=== PATIENT | female | born 1980 | race African-American/Black ===

== ENCOUNTER 2016-11-28 17:05 | Emergency (ER) | payer MEDICAID, OTHER ==
[~2016-11-28] VITALS: Ht 170.2 cm; Wt 161.0 kg
[~2016-11-28 17:05] MED LIST: IBUPROFEN600 MG ORAL; NKM; TRAMADOL HCL50 MG ORAL
[2016-11-28 17:35] VITALS: BP 160/95
[2016-11-28] MEDS ORDERED: Acetaminophen 500mg (ES) tab ORAL ONE (17:45)
--- NOTE | 2016-11-28 17:46 | Emergency Room Report ---
History of Present Illness General Chief Complaint: Pain Source: Patient Present Illness HPI 36-year-old female presents to emergency Department complaining of 10 out of 10 in severity left-sided low back pain that radiates down into the left posterior thigh calf and heel since yesterday. Patient states pain is exacerbated with certain movements specifically pending foreword. Patient denies history of recent fall or trauma. Patient states she has had 2 similar episodes in the past that weren't as painful and were relieved with hot pads. Patient states she has had no relief from her current symptoms patient denies nausea, vomiting , fevers, chills, , history of neoplastic disease or recent spinal procedures. Denies swelling of the leg, or recent travel. Denies numbness tingling or loss of sensation or gross motor movements of the extremities, incontinence of bowel or bladder. Denies CP, Palpitations, LOC, AMS, dizziness, Changes in Vision, Sensation, paresthesias, or a sudden severe headache. Allergies: Coded Allergies: NAPROXEN (Verified Allergy, Unknown, Rash, 11/19/15) Patient History Past Medical History: see triage record Past Surgical History: none Pertinent Family History: none Last Menstrual Period: 11/02/16 Now: No Immunizations: UTD Reviewed Nursing Documentation: PMH: Agreed, PSxH: Agreed Nursing Documentation-PMH Past Medical History: No History, Except For Hx Hypertension: Yes Hx Gastrointestinal Problems: No - C/S 3 times, gout Review of Systems All Other Systems: negative except mentioned in HPI Physical Exam Vital Signs Date Time Temp Pulse Resp B/P Pulse Ox O2 Delivery O2 Flow Rate FiO2 11/28/16 17:21 98.8 120 16 160/95 99 Room Air Sp02 EP Interpretation: reviewed, normal General Appearance: no apparent distress, alert, GCS 15, non-toxic, mild distress - Pt. cannot find a comfortable position, obese Head: normocephalic, atraumatic Eyes: bilateral eye PERRL, bilateral eye normal inspection ENT: hearing grossly normal, normal pharynx, no angioedema, normal voice Neck: full range of motion, supple/symm/no masses Respiratory: chest non-tender, lungs clear, normal breath sounds, speaking full sentences Cardiovascular #1: regular rate, rhythm, no edema Rectal: deferred Genitourinary: normal inspection, no CVA tenderness Musculoskeletal: back normal, gait/station normal, normal range of motion, non- tender, no calf tenderness, tender - palpation of the left paraspinal muscles exacerbates radiation down the left leg. no midline spinous process TTP, no erythema or evidence of obvious deformity or infection. Neurologic: alert, oriented x3, responsive, motor strength/tone normal, sensory intact, speech normal Psychiatric: judgement/insight normal, memory normal, mood/affect normal, no suicidal/homicidal ideation Skin: normal color, no rash, warm/dry, well hydrated Lymphatic: no adenopathy Medical Decision Making PA Attestation Dr. Max is my supervising Physician whom patient management has been discussed with. Diagnostic Impression: Primary Impression: Sciatica of left side ER Course Pt. presents to the ED c/o Left -sided low back pain that shoots down the leg x 2 day(s) Ddx considered but are not limited to Fracture, dislocation, contusion, epidural abscess, Sprain/Strain/Spasm Vital signs: are WNL, pt. is afebrile H&PE are most consistent with sciatica Pt. unable to tolerate straight leg raise. ORDERS: X-ray not required at this time, no spinous process tenderness ED INTERVENTIONS: -350mg Soma PO -Tylenol PO DISCHARGE: At this time pt. is stable for d/c to home. Will provide printed patient care instructions, and any necessary prescriptions. Care plan and follow up instructions have been discussed with the patient prior to discharge. Last Vital Signs Date Time Temp Pulse Resp B/P Pulse Ox O2 Delivery O2 Flow Rate FiO2 11/28/16 17:21 98.8 120 16 160/95 99 Room Air Disposition: HOME, SELF-CARE Condition: Stable Patient Instructions: Sciatica Additional Instructions: Take medications as directed. Follow up with PCP in 3-5 days Return sooner to ED if new symptoms occur, or current symptoms become worse. Do not drink alcohol, drive, or operate heavy machinery while taking Muscle Relaxers as this may cause drowsiness. - Please note that this Emergency Department Report was dictated using [employer] intern technology software, occasionally this can lead to erroneous entry secondary to interpretation by the dictation equipment. Candace Casas Nov 28, 2016 17:46
[2016-11-28 17:54] VITALS: BP 135/88
[2016-11-28] MEDS ORDERED: TYLENOL EXTRA500 MG ORAL (17:54)
[2016-11-28] MEDS ORDERED: CYCLOBENZAPRINE10 MG ORAL (17:54)
== END 2016-11-28 18:30 | disposition home or self-care (01) ==
LOC: EMR 18:05
DX: M54.42 Lumbago with sciatica, left side (principal); I10 Essential (primary) hypertension
CPT/HCPCS: 99283

== ENCOUNTER 2019-10-14 11:11 | Emergency (ER) | payer OTHER ==
[~2019-10-14] VITALS: Ht 170.2 cm; Wt 152.0 kg
[~2019-10-14 11:11] MED LIST changes: +CYCLOBENZAPRINE10 MG ORAL; +TYLENOL EXTRA500 MG ORAL
--- NOTE | 2019-10-14 11:33 | NUR ---
ED Nurse Note: pt walked in to ER from home due to R ankle pain 04/22. pt reported she twisted on 10/11/19. pt aao x4 and ambulatory but limping. calm and cooperative. no acute distress noted at this moment.
--- NOTE | 2019-10-14 11:40 | NUR ---
ED Nurse Note: urine sent to lab.
[2019-10-14] MEDS ORDERED: TYLENOL325 MG ORAL (11:47)
--- NOTE | 2019-10-14 11:48 | Emergency Room Report ---
History of Present Illness General Chief Complaint: Lower Extremity Injury Source: Patient Present Illness HPI 39-year-old female, presents with right ankle pain, aching nature aggravated with stepping on it alleviated with rest severity is moderate, intermittent, patient reports that 3 days ago she twisted her ankle, she states it hurts a little bit more now, she because she stepped on it in an awkward way earlier today, and patient presents for evaluation Allergies: Coded Allergies: NAPROXEN (Verified Allergy, Unknown, Rash, 11/19/15) Patient History Past Medical History: see triage record Last Menstrual Period: 10/11/19 Now: No Reviewed Nursing Documentation: PMH: Agreed; PSxH: Agreed Nursing Documentation-PMH Past Medical History: No History, Except For Hx Hypertension: Yes Hx Gastrointestinal Problems: No - C/S 3 times, gout Review of Systems All Other Systems: negative except mentioned in HPI Physical Exam Vital Signs Date Time Temp Pulse Resp B/P (MAP) Pulse Ox O2 Delivery O2 Flow Rate FiO2 10/14/19 11:15 98.1 74 19 125/77 (93) 100 Room Air General Appearance: well appearing, no apparent distress Head: normocephalic, atraumatic ENT: hearing grossly normal, normal voice Neck: full range of motion, supple Respiratory: no respiratory distress, speaking full sentences Musculoskeletal: other - Right ankle: 2+ PT DP, tenderness to palpation medial malleolus, fires EHL, 5-5 plantar dorsiflexion of the foot sensation grossly intact Neurologic: alert, normal gait Psychiatric: mood/affect normal Skin: no rash Medical Decision Making Diagnostic Impression: Primary Impression: Ankle sprain Qualified Codes: S93.401A - Sprain of unspecified ligament of right ankle, initial encounter ER Course 39-year-old female presents with right ankle pain differential diagnosis includes radical sprain, fracture, dislocation Neurovascular exam intact ESTEE wrap and crutches provided. Referral to Ortho disposition home with return precautions Laboratory Tests Test 10/14/19 11:40 Urine HCG, Qualitative Negative (NEGATIVE) Other X-Ray Diagnostic Results Other X-Ray Diagnostic Results : X-Ray ordered: Right ankle # of Views/Limited Vs Complete: 2 View Indication: Pain EP Interpretation: Yes Interpretation: no dislocation, no fractures Impression: No acute disease Electronically Signed by: Sharif Carter MD Last Vital Signs Date Time Temp Pulse Resp B/P (MAP) Pulse Ox O2 Delivery O2 Flow Rate FiO2 10/14/19 11:15 98.1 74 19 125/77 (93) 100 Room Air Disposition: HOME, SELF-CARE Condition: Stable Scripts Acetaminophen (Tylenol) 325 Mg Tablet 650 MG ORAL Q6H PRN for Prn Pain/Headache/Temp > 101, #30 TAB 0 Refills Prov: Sharif Carter MD 10/14/19 Referrals: [facility]PCP) [facility] Patient Instructions: Ankle Sprain Additional Instructions: The patient was provided with discharge instructions, notified to follow-up with a primary care doctor and or specialist in the next 24-48 hours, and to return to the ED if they have worsening of their symptoms. Please note that this report is being documented using [employer] technology. This can lead to erroneous entry secondary to incorrect interpretation by the dictating instrument. Sharif Carter MD Oct 14, 2019 11:48
--- NOTE | 2019-10-14 12:29 | Diagnostic Imaging Report ---
EXAM: XR Right Ankle Complete, 3 or More Views CLINICAL HISTORY: PAIN TECHNIQUE: Frontal, lateral and oblique views of the right ankle. COMPARISON: None FINDINGS: Bones/joints: No displaced fracture or dislocation identified. Osteopenia. Ankle mortise is intact. Plantar and posterior calcaneal spurs. Soft tissues: Diffuse soft tissue swelling. IMPRESSION: No displaced fracture or dislocation identified.
[2019-10-14 12:30] VITALS: BP 124/82
--- NOTE | 2019-10-14 12:30 | NUR ---
ER DISCHARGE NOTE: Patient is cleared to be discharged per ERMD pt is aox4, on room air, with stable vital signs. pt was given dc and prescription instructions, pt was able to verbalize understanding, pt id band and iv site removed without complications. pt is able to ambulate with steady gait. pt took all belongings.
== END 2019-10-14 12:30 | disposition home or self-care (01) ==
LOC: EMR 11:30
DX: S93.401A Sprain of unspecified ligament of right ankle, initial encounter (principal); X58.XXXA Exposure to other specified factors, initial encounter; Y92.9 Unspecified place or not applicable; Z88.8 Allergy status to other drugs, medicaments and biological substances; I10 Essential (primary) hypertension
CPT/HCPCS: 73610; 81025; Z7502; 99283

== ENCOUNTER 2020-07-14 13:17 | Emergency (ER) | payer OTHER ==
[~2020-07-14] VITALS: Ht 170.2 cm; Wt 146.5 kg
[~2020-07-14 13:17] MED LIST changes: +TYLENOL325 MG ORAL
[2020-07-14 13:25] VITALS: BP 126/81
--- NOTE | 2020-07-14 14:16 | Emergency Room Report ---
History of Present Illness General Chief Complaint: Shoulder Injury Source: Patient Present Illness HPI 39 YO female presents to the ED c/o 05/23 in severity left shoulder pain and tenderness with acute onset this AM after lifting her daughter. She reports hearing and feeling a "pop" in the left shoulder just prior to onset of her pain. Pt. reports radiation occasionally down the left arm. She denies loss of g ross motor movement or sensation. Pt. denies skin color changes. She denies previous shoulder hx. She reports some tingling sensations intermittently to the dorsum of the left hand. She reports raising her arm in any direction exacerbates her pain. She reports that she is right hand dominant. Allergies: Coded Allergies: NAPROXEN (Verified Allergy, Unknown, Rash, 11/19/15) COVID-19 Screening Contact w/high risk pt: No Experienced COVID-19 symptoms?: No COVID-19 Testing performed FRAME TRIMMER: No Patient History Past Medical History: see triage record Past Surgical History: none Pertinent Family History: none Now: No Reviewed Nursing Documentation: PMH: Agreed; PSxH: Agreed Nursing Documentation-PMH Past Medical History: No History, Except For Hx Cardiac Problems: Yes - hypercholestoremia Hx Hypertension: Yes Hx Gastrointestinal Problems: No - C/S 3 times, gout Review of Systems All Other Systems: negative except mentioned in HPI Physical Exam Vital Signs Date Time Temp Pulse Resp B/P (MAP) Pulse Ox O2 Delivery O2 Flow Rate FiO2 07/14/20 13:21 97.5 74 18 126/81 (96) 97 Room Air Sp02 EP Interpretation: reviewed, normal General Appearance: no apparent distress, alert, GCS 15, non-toxic Head: normocephalic, atraumatic Eyes: bilateral eye normal inspection, bilateral eye PERRL ENT: hearing grossly normal, normal voice Neck: full range of motion, no bony tend Respiratory: chest non-tender, lungs clear, normal breath sounds, speaking full sentences Cardiovascular #1: regular rate, rhythm, no edema Gastrointestinal: normal bowel sounds, non tender, soft Genitourinary: normal inspection Musculoskeletal: back normal, normal range of motion, gait/station normal, tender - TTP to the anteriolateral aspect of the left shoulder, pain with attempting to raise hand above the 60* angle in any direction. Pt. cannot tollerate lift off test. NVI. , other - no obvious step off or visible deformity. Neurologic: alert, motor strength/tone normal, oriented x3, sensory intact, responsive, speech normal Psychiatric: judgement/insight normal Skin: normal color Medical Decision Making NIRMAL Wagoner is my supervising Physician whom patient management has been discussed with. Diagnostic Impression: Primary Impression: Injury of left shoulder Qualified Codes: S49.92XA - Unspecified injury of left shoulder and upper arm, initial encounter Additional Impression: Calcified granuloma of lung ER Course 39 YO female presents to the ED c/o 05/23 in severity left shoulder pain and tenderness with acute onset this AM after lifting her daughter. She reports hearing and feeling a "pop" in the left shoulder just prior to onset of her pain. Pt. reports radiation occasionally down the left arm. She denies loss of g ross motor movement or sensation. Pt. denies skin color changes. She denies previous shoulder hx. She reports some tingling sensations intermittently to the dorsum of the left hand. She reports raising her arm in any direction exacerbates her pain. She reports that she is right hand dominant. Ddx considered but are not limited to Fracture, dislocation, contusion, Sprain/Strain/Spasm, rotator cuff injury, labral injury just to name a few Vital signs: are WNL, pt. is afebrile H&PE are most consistent with musculoskeletal injury will perform imaging to r/o fractures/dislocations. ORDERS: - X-ray Left shoulder 3 views - negative for fx, Dislocation, or significant soft tissue injury, per preliminary read in ED, and signed by NIRMAL Casas, my supervising physician has reviewed, and agrees with my interpretation. ED INTERVENTIONS: - Tylenol 650mg PO -- Left arm Sling applied by medical service technician. Pt. remains neurovascularly intact. D/W pt. regarding the incidental finding on imaging showing a calcified g ranuloma in her lung and I urged patient to take these findings with her to her follow-up with primary care provider as this needs to be closely followed until it is determined not to be cancerous. Pt. given a copy of her official radiology report. DISCHARGE: At this time pt. is stable for d/c to home. Will provide printed patient care instructions, and any necessary prescriptions. Care plan and follow up instructions have been discussed with the patient prior to discharge. Other X-Ray Diagnostic Results Other X-Ray Diagnostic Results : X-Ray ordered: Left Shoulder # of Views/Limited Vs Complete: 3 View Indication: Pain EP Interpretation: Yes PA Xray: Interpretation reviewed, by supervising MD, and agrees with findings. Interpretation: no dislocation, no soft tissue swelling, no fractures Impression: Other - CALCIFIED GRANULOMA OF LUNG Electronically Signed by: Candace Casas PA-C Last Vital Signs Date Time Temp Pulse Resp B/P (MAP) Pulse Ox O2 Delivery O2 Flow Rate FiO2 07/14/20 13:25 97.5 74 18 126/81 97 Room Air Status: improved Disposition: HOME, SELF-CARE Condition: Critical Scripts Acetaminophen With Codeine (T#3) (TYLENOL #3 TAB*) Y Tab 1 TAB ORAL Q6H PRN for For Pain, #12 TAB Prov: Candace Casas 07/14/20 Referrals: [facility] (PCP) Additional Instructions: Take medications as directed. Follow up with an GEAR MACHINIST in 3-5 days, even if your symptoms have resolved. If symptoms persist MRI may be required at the discretion of your PCP or Ortho Specialist. --Please review list of primary care clinics, if you do not already have a primary care provider who can give you an Orthopedic Referral. Return sooner to ED if new symptoms occur, or current symptoms become worse. Do not drink alcohol, drive, or operate heavy machinery while taking [place] as this may cause drowsiness. - Please note that this Emergency Department Report was dictated using [employer] sales representative technology software, occasionally this can lead to erroneous entry secondary to interpretation by the dictation equipment. Candace Casas Jul 14, 2020 14:16
--- NOTE | 2020-07-14 14:57 | Diagnostic Imaging Report ---
Indication: Left shoulder pain Technique: 3 views of the left shoulder Comparison: none Findings: There is calcific tendinosis of the rotator cuff. No acute fractures. No dislocations. The joint spaces are preserved. There is a calcified granuloma seen in the left lung Impression: No acute bony trauma
[2020-07-14] MEDS ORDERED: ACETAMINOPHEN-1 EAC1 ORAL (15:00)
[2020-07-14 15:10] VITALS: BP 121/70
== END 2020-07-14 15:10 | disposition home or self-care (01) ==
LOC: EMR 13:45
DX: S49.92XA Unspecified injury of left shoulder and upper arm, initial encounter (principal); J84.10 Pulmonary fibrosis, unspecified; I10 Essential (primary) hypertension; E78.00 Pure hypercholesterolemia, unspecified; X50.0XXA Overexertion from strenuous movement or load, initial encounter; Y92.9 Unspecified place or not applicable
CPT/HCPCS: 73030; Z7502; 99283

== ENCOUNTER 2020-09-26 20:02 | Emergency (ER) | payer OTHER ==
[~2020-09-26] VITALS: Ht 170.2 cm; Wt 102.1 kg
[~2020-09-26 20:02] MED LIST changes: +ACETAMINOPHEN-1 EAC1 ORAL
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
--- NOTE | 2020-09-26 20:21 | NUR ---
ED Nurse Note: ERPA at bedside
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
[2020-09-26] MEDS ORDERED: Ketorolac 30mg Inj IM ONE (20:30)
[2020-09-26] MEDS ORDERED: Methocarbamol 750mg tab ORAL ONE (20:30)
[2020-09-26 20:33] VITALS: BP 128/83
--- NOTE | 2020-09-26 20:33 | NUR ---
ED Nurse Note: Xray done
[2020-09-26] MEDS ORDERED: ROBAXIN-500MG ORAL (20:38)
[2020-09-26] MEDS ORDERED: IBU800 MG PO (20:38)
--- NOTE | 2020-09-26 20:41 | NUR ---
ER DISCHARGE NOTE: Patient is cleared to be discharged per ERMD, pt is aox4, on room air, with stable vital signs. pt was given dc and prescription instructions, pt was able to verbalize understanding, pt id band removed with splint on left arm. pt is able to ambulate with steady gait. pt took all belongings.
[2020-09-26 20:42] VITALS: BP 128/83
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
== END 2020-09-26 20:43 | disposition home or self-care (01) ==
LOC: EMR 20:15
DX: S63.502A Unspecified sprain of left wrist, initial encounter (principal); S67.22XA Crushing injury of left hand, initial encounter; V43.62XA Car passenger injured in collision with other type car in traffic accident, initial encounter; Y92.410 Unspecified street and highway as the place of occurrence of the external cause; I10 Essential (primary) hypertension; E78.00 Pure hypercholesterolemia, unspecified; Z88.6 Allergy status to analgesic agent
CPT/HCPCS: 29125; 73110; 73130; 96372; J1885; Z7502; 99284